=== PATIENT | female | born 1980 | race Caucasian/White ===

== ENCOUNTER 2017-01-13 13:05 | Emergency (ER) | payer MEDICAID, OTHER ==
[~2017-01-13 13:05] MED LIST: Z.0.NO CURRENT MEDS
[2017-01-13 13:11] VITALS: BP 111/75; PULSE 70; RESP 20; TEMP 98.8; O2SAT 100
--- NOTE | 2017-01-13 13:54 | PD ---
HPI Chief Complaint: Musculoskeletal Complaint Time Seen by Provider: 13:48 Travel History International Travel<30 days: No Contact w/Intl Traveler<30days: No Traveled to known affect area: No History of Present Illness HPI 36-year-old right-hand dominant female presents the ED for evaluation of right middle finger pain. Onset 5 days ago after smashing the digit between a hydraulic rafael and her truck. Patient endorses swelling, pain with attempted range of motion. She denies numbness, tingling, weakness or loss of strength of the digit. She is unsure if she is injured the digit in the past. No treatment attempted at home. Patient denies chronic health problems and takes no daily medications. She's been able to go about her normal activities with some modification secondary to pain. [facility] Past Medical History Medical History: Denies Significant Hx Diminished Hearing: No Tetanus Vaccination: < 5 Years Influenza Vaccination: No ?: Not Past Surgical History Section: Yes Tonsillectomy: Yes Social History Alcohol Use: Yes (OCCASIONAL) Tobacco Use: Yes (1/2 PACK DAILY) Substance Use: No Allergies-Medications (Allergen,Severity, Reaction): Coded Allergies: Demerol (Verified Allergy, Severe, Anaphylaxis, 01/13/17) Latex (Verified Allergy, Intermediate, rash/red, 01/13/17) Uncoded Allergies: tape (Allergy, Intermediate, rash/red, 07/07/08) Reported Meds & Prescriptions Reported Meds & Active Scripts Active No Active Prescriptions or Reported Medications Review of Systems Except as stated in HPI: all other systems reviewed are Neg Physical Exam Narrative GENERAL: Well-nourished, well-developed white female in no acute distress. SKIN: Focused skin assessment warm/dry. HEAD: Normocephalic. EYES: No scleral icterus. No injection or drainage. NECK: Supple, trachea midline. No JVD or lymphadenopathy. CARDIOVASCULAR: Regular rate and rhythm without murmurs, gallops, or rubs. RESPIRATORY: Breath sounds equal bilaterally. No accessory muscle use. GASTROINTESTINAL: Abdomen soft, non-tender, nondistended. MUSCULOSKELETAL: No cyanosis, or edema. Focused right upper extremity exam: 2+ radial pulse. Mild to moderate swelling of the PIP joint of the third digit. Mild ecchymosis over the MCP joint. Patient is able to flex and extend the fingers and wrist. Strong finger to thumb opposition with each digit. Cap refill less than 2 seconds, sensation intact to light touch distally on each digit. BACK: Nontender without obvious deformity. No CVA tenderness. Data Data Last Documented VS Vital Signs Date Time Temp Pulse Resp B/P Pulse Ox O2 Delivery O2 Flow Rate FiO2 01/13/17 13:11 98.8 70 20 111/75 100 Orders Finger ([id number]) (01/13/17 13:15) Ice/Cold Pack (01/13/17 13:15) MDM Medical Decision Making Medical Screen Exam Complete: Yes Emergency Medical Condition: Yes Differential Diagnosis Contusion versus fracture versus dislocation versus other Narrative Course 36-year-old right-hand dominant female presents the ED for evaluation of right middle finger pain. Onset 5 days ago after smashing the digit between a hydraulic rafael and her truck. Patient endorses swelling, pain with attempted range of motion. She denies numbness, tingling, weakness or loss of strength of the digit. She is unsure if she is injured the digit in the past. No treatment attempted at home. Patient denies chronic health problems and takes no daily medications. She's been able to go about her normal activities with some modification secondary to pain. Vitals reviewed. Physical exam reveals a pleasant white female in no acute distress. The right upper extremity exam reveals a 2+ radial pulse. Mild to moderate swelling of the PIP joint of the third digit. Mild ecchymosis over the MCP joint. Patient is able to flex and extend the fingers and wrist. Strong finger to thumb opposition with each digit. Cap refill less than 2 seconds, sensation intact to light touch distally on each digit. Ice pack was applied. X-ray is unremarkable per radiology read. This is contusion of the finger. Patient was instructed to continue to treat symptomatically, return normal, gentle activities as tolerated , follow up with the primary care provider or hand surgeon should symptoms persist. She indicated understanding of instructions and is agreeable to the care plan. This patient is stable and discharged home. Diagnosis Primary Impression: Contusion of finger of right hand Qualified Code: S60.031A - Contusion of right middle finger without damage to nail, initial encounter Referrals: Hand Surgeon Primary Care Physician Patient Instructions: Contusion in Adults (ED), General Instructions Additional Instructions: ARest, ice, elevate the extremity. Apply ice no longer than 10-15 minutes per hour a few times a day. 800 mg ibuprofen up to 3 times a day as needed for pain. Compression while performing normal activities will help to decrease swelling. Return to normal, gentle activity as tolerated. Follow up with the hand surgeon or your primary care provider if symptoms persist. Return to the ED for any urgent or emergent medical condition. Scripts No Active Prescriptions or Reported Meds Disposition: 01 DISCHARGE HOME Condition: Stable Yolanda Fine Jan 13, 2017 13:54
--- NOTE | 2017-01-13 14:02 | RADHPO ---
EXAM DATE/TIME: 01/13/2017 13:25 [facility] COMPARISON: No previous studies available for comparison. INDICATIONS : Right third digit pain & bruising in the proximal interphalangeal joint after smashing it. MEDICAL HISTORY : None. SURGICAL HISTORY : Tonsillectomy. section. ENCOUNTER: Initial ACUITY: 3 days PAIN SCORE: 6/10 LOCATION: Right hand third digit. FINDINGS: Examination of the third digit of the right hand demonstrates no evidence of fracture or dislocation. No radiopaque foreign bodies are seen. The soft tissues are intact. CONCLUSION: Unremarkable examination of the right third finger. Dirk Baptiste MD on January 13, 2017 at 13:59 Board Certified Radiologist. This report was verified electronically.
== END 2017-01-13 14:24 | disposition home or self-care (01) ==
LOC: PHEFT 13:05
DX: S60.031A Contusion of right middle finger without damage to nail, initial encounter (principal); F17.200 Nicotine dependence, unspecified, uncomplicated; W23.0XXA Caught, crushed, jammed, or pinched between moving objects, initial encounter
CPT/HCPCS: 73140; 99283